=== PATIENT | female | born 1995 | race Caucasian/White ===

== ENCOUNTER 2020-10-14 13:55 | Outpatient (CLI) | payer OTHER, SELFPAY | END 2020-10-14 13:56 | disposition home or self-care (01) | PROVIDERS: PCP Internal Medicine; Visit Provider Nurse Practitioner Family | DX: Z53.8 Procedure and treatment not carried out for other reasons (principal) | CPT/HCPCS: 99199 ==

== ENCOUNTER 2020-10-15 12:49 | Outpatient (CLI) | payer OTHER, SELFPAY ==
--- NOTE | ~2020-10-15 | US_ITS ---
EXAMINATION: US soft tissue head and neck DATE: 10/15/2020 13:25 INDICATION: Left supraclavicular swelling. TECHNIQUE: Multiple ultrasound images of the neck were obtained. COMPARISON: None. FINDINGS: The right thyroid lobe measures 5.1 x 1.3 x 1.2 cm. The left thyroid lobe measures 4.0 x 0.9 x 1.3 c m. There is a 2 mm nodule right thyroid lobe, likely not clinically significant. There is no abnorma l lymphadenopathy. IMPRESSION: 1. No lymphadenopathy. Reviewed, dictated and finalized at location A. IMPRESSION: 1. No lymphadenopathy.
== END 2020-10-15 12:50 | disposition home or self-care (01) ==
LOC: CHSIMG 12:50
PROVIDERS: PCP Internal Medicine; Visit Provider Nurse Practitioner Family
DX: R22.1 Localized swelling, mass and lump, neck (principal); R22.2 Localized swelling, mass and lump, trunk
CPT/HCPCS: 76536